=== PATIENT | female | born 1965 | race Caucasian/White ===

== ENCOUNTER → 2016-09-06 | Outpatient (REF) | payer OTHER ==
[~2016-09-06] MED LIST: AZEL0.1S3; BENT10CA PO; BUPR50TA PO; CLAR10CA3 PO; DOCQ100C PO; FURO20TA2 PO; GEMF600T PO; HYDR25TAB PO; LISI-538 PO; PANT40TA2 PO; TIOT18INH INH; TRAZ100T4 PO; VITA100037 PO
[2016-09-06 12:17] LABS: BASO # 0.1 K/mm3 (0.0-0.2); BASO % 1.3 % (0.0-1.0); EOS # 0.2 K/mm3 (0.0-0.50); EOS % 2.9 % (0.0-3.0); LARGE UNSTAINED CELL # 0.1 K/mm3 (0.0-0.4); LARGE UNSTAINED CELL % 1.5 % (0.0-4.0); LYMPH % 22.8 % (24.0-44.0); MEAN CORPUSCULAR HEMOGLOBIN 29.6 pg (27.0-33.0); MEAN CORPUSCULAR HGB CONC 34.3 g/dl (32.0-36.5); MEAN CORPUSCULAR VOLUME 86.3 fl (80.0-96.0); MONO # 0.4 K/mm3 (0.0-0.8); MONO % 4.3 % (0.0-5.0); NEUTROPHILS # 5.6 K/mm3 (1.8-7.7); NEUTROPHILS % 67.3 % (36.0-66.0); PLATELET COUNT, AUTOMATED 254 k/mm3 (150-450); RED CELL DISTRIBUTION WIDTH 14.6 % (11.5-14.5); WHITE BLOOD COUNT 8.3 K/mm3 (4.0-10.0)
[2016-09-06 12:37] LABS: ALBUMIN 3.8 GM/DL (3.2-5.2); ALBUMIN/GLOBULIN RATIO 1.09 (1.00-1.93); ALKALINE PHOSPHATASE 112 U/L (45-117); ALT/SGPT 22 U/L (12-78); ANION GAP 11 MEQ/L (8-16); AST/SGOT 10 U/L (15-37); BILIRUBIN,TOTAL 0.3 MG/DL (0.2-1.0); BLOOD UREA NITROGEN 19 MG/DL (7-18); CALCIUM LEVEL 9.8 MG/DL (8.5-10.1); CARBON DIOXIDE LEVEL 26 MEQ/L (21-32); CHLORIDE LEVEL 103 MEQ/L (98-107); CREATININE FOR GFR 0.84 MG/DL (0.55-1.02); GLOMERULAR FILTRATION RATE > 60.0 (>58); GLUCOSE, FASTING 197 MG/DL (70-105); POTASSIUM SERUM 4.6 MEQ/L (3.5-5.1); SODIUM LEVEL 140 MEQ/L (136-145); TOTAL PROTEIN 7.3 GM/DL (6.4-8.2)
== END ==
LOC: M SFHCPLAZ 08:33
PROVIDERS: ATTEND Physician Assistant Medical
DX: I10 Essential (primary) hypertension (principal); E11.69 Type 2 diabetes mellitus with other specified complication

== ENCOUNTER 2016-09-10 16:41 | Emergency (ER) | payer OTHER ==
[2016-09-10] MEDS ORDERED: NORCO, ANEXSIA 5/325MG TABLET (HYDROcodone/ACETAMINOPHEN) As Ordered ONE (17:27)
--- NOTE | 2016-09-10 18:42 | EDDOCDS ---
Nurse's Notes [facility] Name: Sabiha Beaver Age: 51 yrs Sex: Female : 1965 Arrival Date: 09/10/2016 Time: 16:41 Bed TR8 Private MD: Zuri Naranjo R. Diagnosis: Fall on same level due to ice and snow;Low back pain Presentation: 09/10 16:45 Presenting complaint: Patient states: back pain since slipping on ice 1 day ago. Small kr3 area of burn left forearm from cookie tray 1 day ago. Acute neurological deficits are not present. Mechanism of Injury: Fall from standing position. Adult Sepsis Screening: The patient does not have new or worsening altered mentation. Patient's respiratory rate is less than 22. Systolic blood pressure is greater than 100. Patient has a qSOFA score of 0- Negative Sepsis Screen. Suicide/Homicide risk assessment- the patient denies having any suicidal and/or homicidal ideations and does not present with any other emotional, behavioral or mental health complaints. Status: Patient is not a customer service supervisor or dependent. Transition of care: patient was not received from another setting of care. 16:45 Acuity: ALLIE Level 4 kr3 16:45 Method Of Arrival: Walkin/Carried/Asstd kr3 Triage Assessment: 16:48 General: Appears in no apparent distress, comfortable, Behavior is cooperative. Pain: kr3 Location: low back area Pain currently is 10 out of 10 on a pain scale. HIV screening NA for this visit Offered previously. Respiratory: Respiratory effort is even, unlabored. Musculoskeletal: Range of motion intact in all extremities. Injury Description: Burn sustained to dorsal aspect of left forearm is a first-degree burn. was sustained 1 day ago. 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 gemfibrozil 600 mg Oral tab 1 tab 2 times per day 2. hydrochlorothiazide 25 mg Oral tab 1 tab once daily 3. lisinopril 20 mg Oral tab 1 tab once daily 4. metformin 500 mg Oral tab 2 tabs 2 times per day 5. novolog 70/30 24 units twice a day 6. gabapentin 100 mg Oral cap 3 times per day - PMHx: Anxiety; Depression; Diabetes - NIDDM: controlled; Hypercholesterolemia; Hypertension; insomnia; fluid retention; Chronic Back pain; - PSHx: Cesearean Section; Tubal ligation; Cholecystectomy; Hysterectomy; - Social history: Smoking status: Patient uses tobacco products, current every day smoker. No barriers to communication noted, The patient speaks fluent [place] Citizen, Speaks appropriately for age. - : The pt / caregiver states he / she is not on anticoagulants. Home medication list is obtained from the patient. - Exposure Risk Screening:: None identified. Vital Signs: 16:43 BP 155 / 77; Pulse 120; Resp 20; Temp 98.9; Pulse Ox 97% ; Weight 140.16 kg; Height 5 elp ft. 8 in. (172.72 cm); Pain 10/10; 18:38 jam1 16:43 Body Mass Index 46.98 (140.16 kg, 172.72 cm) elp 18:38 CALLED PT TO ROOM FOUR TIMES WENT TO WAITING ROOM LOOKED OUT SIDE SHE WAS NOT THERE [facility] Vitals: 16:43 Log In Time: September 10, 2016 at 16:41. elp ED Course: 16:42 Patient visited by Lucila Ruiz PCA. elp 16:42 Patient moved to Waiting elp 16:43 Zuri Naranjo is Private Physician. elp 16:43 Patient moved to Pre RCE elp 16:46 Triage Initiated kr3 16:52 Patient moved to Triage 2 ml6 17:16 [facility]icks[facility] ar2 17:16 Anastasia Levy MD is Attending Physician. ar2 17:16 Patient visited by Braydon Dickson PA-C. ar2 17:35 Patient moved to TR8 [facility] 17:39 [facility] Payment Agreement was scanned into [employer] and attached to record. gjb 18:02 Patient moved to TR1 ml6 18:22 Patient moved to PR2 / 26 jam1 18:26 Patient moved to TR8 [facility] 18:37 Zuri Naranjo is Referral Physician. ar2 Administered Medications: 17:35 Drug: HYDROcodone-acetaminophen 1 tabs [hydrocodone 5 mg-acetaminophen 325 mg tablet (1 ml6 tabs)] Route: PO; Order Results: There are currently no results for this order. Outcome: 18:38 Patient left against medical advice. ar2 18:40 The patient is leaving AMA: AMA form signed, Notification of AMA status is made to the 6 charge nurse, the older adult social work specialist, the ED attending physician. 18:40 Patient left the ED. 6 Signatures: Radha Smith, APPLIANCE PARTS COUNTER CLERK APPLIANCE PARTS COUNTER CLERK jam1 Renetta Anaya,RN RN kr3 Braydon Dickson, Abdifatah Shahid PA-C, RN RN ml6 Lucila Ruiz, APPLIANCE PARTS COUNTER CLERK APPLIANCE PARTS COUNTER CLERK Odilia Henson MTDD
--- NOTE | 2016-09-10 18:42 | EDDOCDS ---
Physician Documentation [facility] Name: Sabiha Beaver Age: 51 yrs Sex: Female : 1965 Arrival Date: 09/10/2016 Time: 16:41 Bed TR8 Private MD: Zuri Naranjo R. Disposition: 09/10/16 18:38 Patient has left against medical advice. Impression: Fall on same level due to ice and snow, Low back pain. - Patients states they are going to Home/Self Care. - Condition is Unchanged. - Discharge Instructions: AMA. Medication Reconciliation, Local Pharmacy Hours form. Follow up: Zuri Naranjo; When: Call to arrange an appointment; Reason: Recheck today's complaints, Continuance of care. Follow up: Emergency Department; When: As needed; Reason: Worsening of conditions. - Problem is new. - Symptoms are unchanged. Historical: - Allergies: PENICILLINS (Hives); - Home Meds: 1. gemfibrozil 600 mg Oral tab 1 tab 2 times per day 2. hydrochlorothiazide 25 mg Oral tab 1 tab once daily 3. lisinopril 20 mg Oral tab 1 tab once daily 4. metformin 500 mg Oral tab 2 tabs 2 times per day 5. novolog 70/30 24 units twice a day 6. gabapentin 100 mg Oral cap 3 times per day - PMHx: Anxiety; Depression; Diabetes - NIDDM: controlled; Hypercholesterolemia; Hypertension; insomnia; fluid retention; Chronic Back pain; - PSHx: Cesearean Section; Tubal ligation; Cholecystectomy; Hysterectomy; - Social history: Smoking status: Patient uses tobacco products, current every day smoker. No barriers to communication noted, The patient speaks fluent Latvian, Speaks appropriately for age. - : The pt / caregiver states he / she is not on anticoagulants. Home medication list is obtained from the patient. - Exposure Risk Screening:: None identified. 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 8 in. (172.72 cm); Pain 10/10; 18:38 jam1 16:43 Body Mass Index 46.98 (140.16 kg, 172.72 cm) elp 18:38 CALLED PT TO ROOM FOUR TIMES WENT TO WAITING ROOM LOOKED OUT SIDE SHE WAS NOT THERE jam1 MDM: 17:24 HYDROcodone-acetaminophen 5 mg-325 mg 1 tabs PO once ordered. ar2 17:25 Spine. Lumbosacral, Complete Ordered. EDMS 17:39 [facility] Payment Agreement was scanned into [employer] and attached to record. gjb 17:39 Financial registration complete. gjb Administered Medications: 17:35 Drug: HYDROcodone-acetaminophen 1 tabs [hydrocodone 5 mg-acetaminophen 325 mg tablet (1 ml6 tabs)] Route: PO; Signatures: Dispatcher [employer] EDMS Renetta AnayaRN RN kr3 Braydon Dickson PA-C PARichelle ar2 Abdifatah Borden RN RN ml6 Odilia Carranza The chart was reviewed and I authenticate all verbal orders and agree with the evaluation and treatment provided.Attachments: 17:39 [facility] Payment Agreement gjb MTDD
--- NOTE | 2016-09-10 18:54 | EDDOCDS ---
Nurse's Notes [facility] Name: Sabiha Beaver Age: 51 yrs Sex: Female : 1965 Arrival Date: 09/10/2016 Time: 16:41 Bed PR Private MD: Zuri Naranjo R. Diagnosis: Fall on same level due to ice and snow;Low back pain Presentation: 09/10 16:45 Presenting complaint: Patient states: back pain since slipping on ice 1 day ago. Small kr3 area of burn left forearm from cookie tray 1 day ago. Acute neurological deficits are not present. Mechanism of Injury: Fall from standing position. Adult Sepsis Screening: The patient does not have new or worsening altered mentation. Patient's respiratory rate is less than 22. Systolic blood pressure is greater than 100. Patient has a qSOFA score of 0- Negative Sepsis Screen. Suicide/Homicide risk assessment- the patient denies having any suicidal and/or homicidal ideations and does not present with any other emotional, behavioral or mental health complaints. Status: Patient is not a adoption services manager or dependent. Transition of care: patient was not received from another setting of care. 16:45 Acuity: ALLIE Level 4 kr3 16:45 Method Of Arrival: Walkin/Carried/Asstd kr3 Triage Assessment: 16:48 General: Appears in no apparent distress, comfortable, Behavior is cooperative. Pain: kr3 Location: low back area Pain currently is 10 out of 10 on a pain scale. HIV screening NA for this visit Offered previously. Respiratory: Respiratory effort is even, unlabored. Musculoskeletal: Range of motion intact in all extremities. Injury Description: Burn sustained to dorsal aspect of left forearm is a first-degree burn. was sustained 1 day ago. 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 gemfibrozil 600 mg Oral tab 1 tab 2 times per day 2. hydrochlorothiazide 25 mg Oral tab 1 tab once daily 3. lisinopril 20 mg Oral tab 1 tab once daily 4. metformin 500 mg Oral tab 2 tabs 2 times per day 5. novolog 70/30 24 units twice a day 6. gabapentin 100 mg Oral cap 3 times per day - PMHx: Anxiety; Depression; Diabetes - NIDDM: controlled; Hypercholesterolemia; Hypertension; insomnia; fluid retention; Chronic Back pain; - PSHx: Cesearean Section; Tubal ligation; Cholecystectomy; Hysterectomy; - Social history: Smoking status: Patient uses tobacco products, current every day smoker. No barriers to communication noted, The patient speaks fluent Surinamese, Speaks appropriately for age. - Family history: Not pertinent. - : The pt / caregiver states he / she is not on anticoagulants. Home medication list is obtained from the patient. - Exposure Risk Screening:: None identified. Screenin:50 Screening information is obtained from the patient. Fall risk: No risks identified. js13 Assistance ADL's: requires no assistance with activities of daily living. Abuse/DV Screen: The patient / caregiver reports he/she is: not in a situation that causes fear, pain or injury. Nutritional screening: No deficits noted. Advance Directives: There is no active DNR order. home support is adequate. Assessment: 18:50 General: Appears in no apparent distress, comfortable, Behavior is appropriate for age, js13 cooperative. Pain: Pain currently is 3 out of 10 on a pain scale. Neurological: Level of Consciousness is awake, alert. Respiratory: Airway is patent Respiratory effort is even, unlabored, Respiratory pattern is regular, symmetrical. Derm: Skin is pink, warm & dry. Vital Signs: 16:43 BP 155 / 77; Pulse 120; Resp 20; Temp 98.9; Pulse Ox 97% ; Weight 140.16 kg; Height 5 elp ft. 8 in. (172.72 cm); Pain 10/10; 18:38 jam1 18:53 Pain 2/10; js13 16:43 Body Mass Index 46.98 (140.16 kg, 172.72 cm) elp 18:38 CALLED PT TO ROOM FOUR TIMES WENT TO WAITING ROOM LOOKED OUT SIDE SHE WAS NOT THERE jam1 Vitals: 16:43 Log In Time: September 10, 2016 at 16:41. elp ED Course: 16:42 Patient visited by Lucila Ruiz PCA. elp 16:42 Patient moved to Waiting elp 16:43 Zuri Naranjo is Private Physician. elp 16:43 Patient moved to Pre RCE elp 16:46 Triage Initiated kr3 16:52 Patient moved to Triage 2 ml6 17:16 [facility]icks[facility]. ar2 17:16 Anastasia Levy MD is Attending Physician. ar2 17:16 Patient visited by Braydon Dickson PA-C. ar2 17:35 Patient moved to TR8 jam1 17:39 [facility] Payment Agreement was scanned into [employer] and attached to record. gjb 18:02 Patient moved to TR1 ml6 18:22 Patient moved to PR2 / 26 jam1 18:26 Patient moved to TR8 jam1 18:37 Zuri Naranjo is Referral Physician. ar2 18:45 Patient moved to PR1 / 25 jam1 18:46 Zuri Naranjo is Referral Physician. ar2 18:50 The patient / caregiver is instructed regarding the plan of care and ED course. js13 18:52 No IV's were initiated during this patient's visit. No procedures done that require js13 assistance. Administered Medications: 17:35 Drug: HYDROcodone-acetaminophen 1 tabs [hydrocodone 5 mg-acetaminophen 325 mg tablet (1 ml6 tabs)] Route: PO; 18:53 Follow up: Pain 10/13 Adult js13 18:53 Follow up: Response: Pain is decreased js13 Order Results: There are currently no results for this order. Outcome: 18:38 Patient left against medical advice. ar2 18:40 The patient is leaving AMA: AMA form signed, Notification of AMA status is made to the [facility] charge nurse, the social media senior associate, the ED attending physician. 18:40 Patient left the ED. ml6 18:46 Discharge ordered by Provider. ar2 18:53 Discharge Assessment: Patient awake, alert and oriented x 3. No cognitive and/or js13 functional deficits noted. Patient verbalized understanding of disposition instructions. patient administered narcotics - yes. Pt provided with safe discharge. The following High Risk Discharge criteria are identified: None. Discharged to home ambulatory, with friend. Condition: stable. Discharge instructions given to patient, Instructed on discharge instructions, follow up and referral plans. medication usage, Demonstrated understanding of instructions, medications, Pt was receptive of discharge instructions/ teaching. Prescriptions given X 2. No special radiology studies were completed. Property :Personal belongings accompany Pt. 18:54 Patient left the ED. js13 Signatures: Radha Smith, BARNWORKER GROOM BARNWORKER GROOM jam1 Renetta Anaya,ARSH RN kr3 Braydon Dickson PA-C PA-C ar2 Abdifatah Borden, RN RN ml6 Darlene Sellers,RN RN js13 Lucila Ruiz, Odilia Kwong MTDD
--- NOTE | 2016-09-10 18:54 | EDDOCDS ---
Physician Documentation [facility] Name: Sabiha Beaver Age: 51 yrs Sex: Female : 1965 Arrival Date: 09/10/2016 Time: 16:41 Bed PR Private MD: Zuri Naranjo R. Disposition: 09/10/16 18:46 Discharged to Home/Self Care. Impression: Fall on same level due to ice and snow, Low back pain. - Condition is Stable. - Discharge Instructions: Back Pain, Adult. - Prescriptions for Naprosyn 500 mg Oral Tablet - take 1 tablet by ORAL route 2 times per day take with food; 30 tablet. Cyclobenzaprine 10 mg Oral Tablet - take 1 tablet by ORAL route 3 times per day As needed; 15 tablet. - Medication Reconciliation, Local Pharmacy Hours form. - Follow up: Zuri Naranjo; When: Call to arrange an appointment; Reason: Recheck today's complaints, Continuance of care. - Problem is new. - Symptoms have improved. Historical: - Allergies: PENICILLINS (Hives); - Home Meds: 1. gemfibrozil 600 mg Oral tab 1 tab 2 times per day 2. hydrochlorothiazide 25 mg Oral tab 1 tab once daily 3. lisinopril 20 mg Oral tab 1 tab once daily 4. metformin 500 mg Oral tab 2 tabs 2 times per day 5. novolog 70/30 24 units twice a day 6. gabapentin 100 mg Oral cap 3 times per day - PMHx: Anxiety; Depression; Diabetes - NIDDM: controlled; Hypercholesterolemia; Hypertension; insomnia; fluid retention; Chronic Back pain; - PSHx: Cesearean Section; Tubal ligation; Cholecystectomy; Hysterectomy; - Social history: Smoking status: Patient uses tobacco products, current every day smoker. No barriers to communication noted, The patient speaks fluent Uzbek, Speaks appropriately for age. - Family history: Not pertinent. - : The pt / caregiver states he / she is not on anticoagulants. Home medication list is obtained from the patient. - Exposure Risk Screening:: None identified. 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 8 in. (172.72 cm); Pain 10/10; 18:38 jam1 18:53 Pain 2/10; js13 16:43 Body Mass Index 46.98 (140.16 kg, 172.72 cm) elp 18:38 CALLED PT TO ROOM FOUR TIMES WENT TO WAITING ROOM LOOKED OUT SIDE SHE WAS NOT THERE jam1 MDM: 17:24 HYDROcodone-acetaminophen 5 mg-325 mg 1 tabs PO once ordered. ar2 17:25 Spine. Lumbosacral, Complete Ordered. EDMS 17:39 [facility] Payment Agreement was scanned into [employer] and attached to record. gjb 17:39 Financial registration complete. gjb Administered Medications: 17:35 Drug: HYDROcodone-acetaminophen 1 tabs [hydrocodone 5 mg-acetaminophen 325 mg tablet (1 ml6 tabs)] Route: PO; 18:53 Follow up: Pain 2/10 Adult js13 18:53 Follow up: Response: Pain is decreased js13 Signatures: Dispatcher [employer] EDVT Renetta Anaya,RN RN kr3 Braydon Dickson, PA-C PA-C ar2 Abdifatah Borden RN RN ml6 Darlene SellersRN RN js13 Odilia Carranza The chart was reviewed and I authenticate all verbal orders and agree with the evaluation and treatment provided.Attachments: 17:39 [facility] Payment Agreement gjb MTDD
--- NOTE | 2016-09-11 05:41 | REP ---
LUMBAR SPINE SERIES: FIVE VIEWS. History: Injury in a fall. Question compression fracture. Comparison study November 01, 2014. Findings: There is a mild levoconvex curve in the lumbar spine on the AP radiograph unchanged from the prior study. There are clips in right upper quadrant of the abdomen. Discogenic spurring is noted on the left at L1-2 and L2-3. Lumbar vertebral body heights are preserved. Degenerative disc disease is seen at each lumbar level. This is essentially unchanged from the 2015 prior study. No fracture or collapse is seen. Pedicles and posterior elements are intact. Impression: Degenerative disc changes. No fracture seen. Signed by Jose Juan Yoo MD 09/11/2016 08:32 A
--- NOTE | 2016-09-12 19:55 | EDDOCDS ---
Nurse's Notes [facility] Name: Sabiha Beaver Age: 51 yrs Sex: Female : 1965 Arrival Date: 09/10/2016 Time: 16:41 Bed PR Private MD: Zuri Naranjo R. Diagnosis: Fall on same level due to ice and snow;Low back pain Presentation: 09/10 16:45 Presenting complaint: Patient states: back pain since slipping on ice 1 day ago. Small kr3 area of burn left forearm from cookie tray 1 day ago. Acute neurological deficits are not present. Mechanism of Injury: Fall from standing position. Adult Sepsis Screening: The patient does not have new or worsening altered mentation. Patient's respiratory rate is less than 22. Systolic blood pressure is greater than 100. Patient has a qSOFA score of 0- Negative Sepsis Screen. Suicide/Homicide risk assessment- the patient denies having any suicidal and/or homicidal ideations and does not present with any other emotional, behavioral or mental health complaints. Status: Patient is not a technical services analyst or dependent. Transition of care: patient was not received from another setting of care. 16:45 Acuity: ALLIE Level 4 kr3 16:45 Method Of Arrival: Walkin/Carried/Asstd kr3 Triage Assessment: 16:48 General: Appears in no apparent distress, comfortable, Behavior is cooperative. Pain: kr3 Location: low back area Pain currently is 10 out of 10 on a pain scale. HIV screening NA for this visit Offered previously. Respiratory: Respiratory effort is even, unlabored. Musculoskeletal: Range of motion intact in all extremities. Injury Description: Burn sustained to dorsal aspect of left forearm is a first-degree burn. was sustained 1 day ago. 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 gemfibrozil 600 mg Oral tab 1 tab 2 times per day 2. hydrochlorothiazide 25 mg Oral tab 1 tab once daily 3. lisinopril 20 mg Oral tab 1 tab once daily 4. metformin 500 mg Oral tab 2 tabs 2 times per day 5. novolog 70/30 24 units twice a day 6. gabapentin 100 mg Oral cap 3 times per day - PMHx: Anxiety; Depression; Diabetes - NIDDM: controlled; Hypercholesterolemia; Hypertension; insomnia; fluid retention; Chronic Back pain; - PSHx: Cesearean Section; Tubal ligation; Cholecystectomy; Hysterectomy; - Social history: Smoking status: Patient uses tobacco products, current every day smoker. No barriers to communication noted, The patient speaks fluent [place], Speaks appropriately for age. - Family history: Not pertinent. - : The pt / caregiver states he / she is not on anticoagulants. Home medication list is obtained from the patient. - Exposure Risk Screening:: None identified. Screenin:50 Screening information is obtained from the patient. Fall risk: No risks identified. js13 Assistance ADL's: requires no assistance with activities of daily living. Abuse/DV Screen: The patient / caregiver reports he/she is: not in a situation that causes fear, pain or injury. Nutritional screening: No deficits noted. Advance Directives: There is no active DNR order. home support is adequate. Assessment: 18:50 General: Appears in no apparent distress, comfortable, Behavior is appropriate for age, js13 cooperative. Pain: Pain currently is 3 out of 10 on a pain scale. Neurological: Level of Consciousness is awake, alert. Respiratory: Airway is patent Respiratory effort is even, unlabored, Respiratory pattern is regular, symmetrical. Derm: Skin is pink, warm & dry. Vital Signs: 16:43 BP 155 / 77; Pulse 120; Resp 20; Temp 98.9; Pulse Ox 97% ; Weight 140.16 kg; Height 5 elp ft. 8 in. (172.72 cm); Pain 10/10; 18:38 jam1 18:50 BP 149 / 68; Pulse 97; Resp 20; Temp 99.0; Pulse Ox 98% ; Pain 10/10; jam1 18:53 Pain 2/10; js13 16:43 Body Mass Index 46.98 (140.16 kg, 172.72 cm) elp 18:38 CALLED PT TO ROOM FOUR TIMES WENT TO WAITING ROOM LOOKED OUT SIDE SHE WAS NOT THERE jam1 Vitals: 16:43 Log In Time: September 10, 2016 at 16:41. elp ED Course: 16:42 Patient visited by Lucila Ruiz PCA. elp 16:42 Patient moved to Waiting elp 16:43 Zuri Naranjo is Private Physician. elp 16:43 Patient moved to Pre RCE elp 16:46 Triage Initiated kr3 16:52 Patient moved to Triage 2 ml6 17:16 Braydon Dickson PA-C is PHCP. ar2 17:16 Anastasia Levy MD is Attending Physician. ar2 17:16 Patient visited by Braydon Dickson PA-C. ar2 17:35 Patient moved to TR8 jam1 17:39 [facility] [place] Agreement was scanned into [employer] and attached to record. gjb 18:02 Patient moved to TR1 ml6 18:22 Patient moved to PR2 / 26 jam1 18:26 Patient moved to TR8 jam1 18:37 Zuri Naranjo is Referral Physician. ar2 18:45 Patient moved to PR1 / 25 jam1 18:46 Zuri Naranjo is Referral Physician. ar2 18:50 The patient / caregiver is instructed regarding the plan of care and ED course. js13 18:52 No IV's were initiated during this patient's visit. No procedures done that require js13 assistance. 21:20 T-Sheet-- Draft Copy was scanned into [employer] and attached to record. klr 09/11 05:48 Spine. Lumbosacral, Complete Returned. EDMS 10:52 Radiology Report was scanned into [employer] and attached to record. gb Administered Medications: 09/10 17:35 Drug: HYDROcodone-acetaminophen 1 tabs [hydrocodone 5 mg-acetaminophen 325 mg tablet (1 ml6 tabs)] Route: PO; 18:53 Follow up: Pain 2 Adult js13 18:53 Follow up: Response: Pain is decreased js13 Order Results: Radiology Order: Spine. Lumbosacral, Complete Test: Spine. Lumbosacral, Complete REASON FOR EXAMINATION: fall r/o compression fx; LUMBAR SPINE SERIES: FIVE VIEWS.; ; History: Injury in a fall. Question compression fracture.; ; Comparison study November 01, 2014.; ; Findings: There is a mild levoconvex curve in the lumbar spine on the AP; radiograph unchanged from the prior study. There are clips in right upper; quadrant of the abdomen. Discogenic spurring is noted on the left at L1-2 and; L2-3. Lumbar vertebral body heights are preserved. Degenerative disc disease is; seen at each lumbar level. This is essentially unchanged from the 2014 prior; study. No fracture or collapse is seen. Pedicles and posterior elements are; intact.; ; Impression:; ; Degenerative disc changes. No fracture seen.; ; ; Signed by; Jose Juan Yoo MD 09/11/2016 08:32 A; Outcome: 18:38 Patient left against medical advice. ar2 18:40 The patient is leaving AMA: AMA form signed, Notification of AMA status is made to the 6 charge nurse, the social work therapist, the ED attending physician. 18:40 Patient left the ED. ml6 18:46 Discharge ordered by Provider. ar2 18:53 Discharge Assessment: Patient awake, alert and oriented x 3. No cognitive and/or js13 functional deficits noted. Patient verbalized understanding of disposition instructions. patient administered narcotics - yes. Pt provided with safe discharge. The following High Risk Discharge criteria are identified: None. Discharged to home ambulatory, with friend. Condition: stable. Discharge instructions given to patient, Instructed on discharge instructions, follow up and referral plans. medication usage, Demonstrated understanding of instructions, medications, Pt was receptive of discharge instructions/ teaching. Prescriptions given X 2. No special radiology studies were completed. Property :Personal belongings accompany Pt. 18:54 Patient left the ED. js13 Signatures: Dispatcher [employer] EDMS Radha Smith, FIELD SERVICE TECH FIELD SERVICE TECH jam1 Oxana Lagunas, Renetta Bray,RN RN kr3 Braydon Dickson, PA-C PA-C ar2 Abdifatah Borden, ARSH RN ml6 Darlene Sellers RN RN js13 Lucila Ruiz, FIELD SERVICE TECH FIELD SERVICE TECH Odilia Henson Kathie klr Chart Complete MTDD
--- NOTE | 2016-09-12 19:55 | EDDOCDS ---
Physician Documentation [facility] Name: Sabiha Beaver Age: 51 yrs Sex: Female : 1965 Arrival Date: 09/10/2016 Time: 16:41 Bed PR Private MD: Zuri Naranjo R. Disposition: 09/10/16 18:46 Discharged to Home/Self Care. Impression: Fall on same level due to ice and snow, Low back pain. - Condition is Stable. - Discharge Instructions: Back Pain, Adult. - Prescriptions for Naprosyn 500 mg Oral Tablet - take 1 tablet by ORAL route 2 times per day take with food; 30 tablet. Cyclobenzaprine 10 mg Oral Tablet - take 1 tablet by ORAL route 3 times per day As needed; 15 tablet. - Medication Reconciliation, Local Pharmacy Hours form. - Follow up: Zuri Naranjo; When: Call to arrange an appointment; Reason: Recheck today's complaints, Continuance of care. - Problem is new. - Symptoms have improved. Historical: - Allergies: PENICILLINS (Hives); - Home Meds: 1. gemfibrozil 600 mg Oral tab 1 tab 2 times per day 2. hydrochlorothiazide 25 mg Oral tab 1 tab once daily 3. lisinopril 20 mg Oral tab 1 tab once daily 4. metformin 500 mg Oral tab 2 tabs 2 times per day 5. novolog 70/30 24 units twice a day 6. gabapentin 100 mg Oral cap 3 times per day - PMHx: Anxiety; Depression; Diabetes - NIDDM: controlled; Hypercholesterolemia; Hypertension; insomnia; fluid retention; Chronic Back pain; - PSHx: Cesearean Section; Tubal ligation; Cholecystectomy; Hysterectomy; - Social history: Smoking status: Patient uses tobacco products, current every day smoker. No barriers to communication noted, The patient speaks fluent Marshallese, Speaks appropriately for age. - Family history: Not pertinent. - : The pt / caregiver states he / she is not on anticoagulants. Home medication list is obtained from the patient. - Exposure Risk Screening:: None identified. 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 8 in. (172.72 cm); Pain 10/10; 18:38 jam1 18:50 BP 149 / 68; Pulse 97; Resp 20; Temp 99.0; Pulse Ox 98% ; Pain 10/10; jam1 18:53 Pain 2/10; js13 16:43 Body Mass Index 46.98 (140.16 kg, 172.72 cm) elp 18:38 CALLED PT TO ROOM FOUR TIMES WENT TO WAITING ROOM LOOKED OUT SIDE SHE WAS NOT THERE jam1 MDM: 17:24 HYDROcodone-acetaminophen 5 mg-325 mg 1 tabs PO once ordered. ar2 17:25 Spine. Lumbosacral, Complete Ordered. EDMS 17:39 [facility] [place] Payment Agreement was scanned into [employer] and attached to record. gjb 17:39 Financial registration complete. gjb 21:20 T-Sheet-- Draft Copy was scanned into [employer] and attached to record. klr 09/11 10:52 Radiology Report was scanned into [employer] and attached to record. gb Administered Medications: 09/10 17:35 Drug: HYDROcodone-acetaminophen 1 tabs [hydrocodone 5 mg-acetaminophen 325 mg tablet (1 ml6 tabs)] Route: PO; 18:53 Follow up: Pain 2/10 Adult js13 18:53 Follow up: Response: Pain is decreased js13 Signatures: Dispatcher [employer] EDMS Oxana Lagunas, Jonah Reg gb Renetta Anaya,RN RN kr3 Braydon Dickson PARichelle PARichelle ar2 Abdifatah Borden RN RN ml6 Darlene Sellers RN RN js13 Odilia Carranza b Sindhu Lucas The chart was reviewed and I authenticate all verbal orders and agree with the evaluation and treatment provided.Attachments: 17:39 [facility] [place] Payment Agreement b 21:20 T-Sheet-- Draft Copy klr Chart Complete MTDD
--- NOTE | 2016-09-12 19:55 | EDDOCDS ---
Physician Documentation [facility] Name: Sabiha Beaver Age: 51 yrs Sex: Female : 1965 Arrival Date: 09/10/2016 Time: 16:41 Bed PR Private MD: Zuri Naranjo R. Disposition: 09/10/16 18:46 Discharged to Home/Self Care. Impression: Fall on same level due to ice and snow, Low back pain. - Condition is Stable. - Discharge Instructions: Back Pain, Adult. - Prescriptions for Naprosyn 500 mg Oral Tablet - take 1 tablet by ORAL route 2 times per day take with food; 30 tablet. Cyclobenzaprine 10 mg Oral Tablet - take 1 tablet by ORAL route 3 times per day As needed; 15 tablet. - Medication Reconciliation, Local Pharmacy Hours form. - Follow up: Zuri Naranjo; When: Call to arrange an appointment; Reason: Recheck today's complaints, Continuance of care. - Problem is new. - Symptoms have improved. Historical: - Allergies: PENICILLINS (Hives); - Home Meds: 1. gemfibrozil 600 mg Oral tab 1 tab 2 times per day 2. hydrochlorothiazide 25 mg Oral tab 1 tab once daily 3. lisinopril 20 mg Oral tab 1 tab once daily 4. metformin 500 mg Oral tab 2 tabs 2 times per day 5. novolog 70/30 24 units twice a day 6. gabapentin 100 mg Oral cap 3 times per day - PMHx: Anxiety; Depression; Diabetes - NIDDM: controlled; Hypercholesterolemia; Hypertension; insomnia; fluid retention; Chronic Back pain; - PSHx: Cesearean Section; Tubal ligation; Cholecystectomy; Hysterectomy; - Social history: Smoking status: Patient uses tobacco products, current every day smoker. No barriers to communication noted, The patient speaks fluent Citizen Of [place], Speaks appropriately for age. - Family history: Not pertinent. - : The pt / caregiver states he / she is not on anticoagulants. Home medication list is obtained from the patient. - Exposure Risk Screening:: None identified. 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 8 in. (172.72 cm); Pain 10/10; 18:38 jam1 18:50 BP 149 / 68; Pulse 97; Resp 20; Temp 99.0; Pulse Ox 98% ; Pain 10/10; jam1 18:53 Pain 2/10; js13 16:43 Body Mass Index 46.98 (140.16 kg, 172.72 cm) elp 18:38 CALLED PT TO ROOM FOUR TIMES WENT TO WAITING ROOM LOOKED OUT SIDE SHE WAS NOT THERE jam1 MDM: 17:24 HYDROcodone-acetaminophen 5 mg-325 mg 1 tabs PO once ordered. ar2 17:25 Spine. Lumbosacral, Complete Ordered. EDMS 17:39 [facility] [place] Agreement was scanned into [employer] and attached to record. gjb 17:39 Financial registration complete. gjb 21:20 T-Sheet-- Draft Copy was scanned into [employer] and attached to record. klr 09/11 10:52 Radiology Report was scanned into [employer] and attached to record. gb Administered Medications: 09/10 17:35 Drug: HYDROcodone-acetaminophen 1 tabs [hydrocodone 5 mg-acetaminophen 325 mg tablet (1 ml6 tabs)] Route: PO; 18:53 Follow up: Pain 2/10 Adult js13 18:53 Follow up: Response: Pain is decreased js13 Signatures: Dispatcher [employer] EDMS Oxana Lagunas, Jonah Reg gb Renetta Anaya,RN RN kr3 Braydon Dickson PARichelle PARichelle ar2 Abdifatah Borden RN RN ml6 Darlene Sellers RN RN js13 Odilia Carranza b Sindhu Lucas The chart was reviewed and I authenticate all verbal orders and agree with the evaluation and treatment provided.Attachments: 17:39 [facility] [place] Agreement b 21:20 T-Sheet-- Draft Copy klr Chart Complete MTDD
== END 2016-09-10 18:54 | disposition home or self-care (01) ==
LOC: M ED 16:41
DX: S39.92XA Unspecified injury of lower back, initial encounter (principal); W00.0XXA Fall on same level due to ice and snow, initial encounter; Y92.89 Other specified places as the place of occurrence of the external cause; Y93.01 Activity, walking, marching and hiking; Y99.8 Other external cause status; F41.9 Anxiety disorder, unspecified; F32.9 Major depressive disorder, single episode, unspecified; E11.9 Type 2 diabetes mellitus without complications; E78.00 Pure hypercholesterolemia, unspecified; I10 Essential (primary) hypertension; G47.00 Insomnia, unspecified; R60.9 Edema, unspecified; M54.9 Dorsalgia, unspecified; Z79.4 Long term (current) use of insulin; Z79.899 Other long term (current) drug therapy; Z88.0 Allergy status to penicillin; F17.210 Nicotine dependence, cigarettes, uncomplicated

== ENCOUNTER → 2016-09-11 | Outpatient (CLI) | payer OTHER ==
--- NOTE | 2016-09-15 05:52 | SLEEPHOME ---
DATE OF PROCEDURE: 09/11/2016 ORDERED BY: Dr. Draper. ORDERED BY: Radha Mclain. INTERPRETATION: Diagnostic home sleep testing was performed due to concern for the obstructive sleep apnea syndrome in this patient with a history of excessive somnolence. For testing, a NOX-T3 respiratory monitoring device was utilized. Continuous record was made of pulse, oxygen saturation, chest and abdominal strain, air flow and body position. 9 hours and 59 minutes of data were reviewed. 7 hours and 12 minutes were marked as time in bed. During the interval marked time in bed, there were 43 respiratory events identified of 10 seconds in duration or greater for a respiratory event index of 6. The character of events is difficult to quantify as patient did not wear the strain belts correctly. The patient's baseline pulse rate was 79 beats per minute. Pulse rate ranged 69-104. Baseline oxygen saturation 92%. Lowest oxygen saturation 79%. Testing was performed in both the supine and non-supine positions. IMPRESSION: Abnormal home sleep testing with repetitive respiratory events and oxygen desaturations to 79% and a respiratory event index of 6 is consistent with the obstructive sleep apnea syndrome. RECOMMENDATION: The patient should be referred for formal in laboratory evaluation and pressure titration.
== END ==
LOC: M SLEEP 12:51
PROVIDERS: ATTEND Internal Medicine Pulmonary Disease
DX: R40.0 Somnolence (principal)

== ENCOUNTER → 2016-09-19 | Outpatient (REF) | payer OTHER | LOC: M SFHCPLAZ 07:51 | PROVIDERS: ATTEND Physician Assistant Medical | DX: I10 Essential (primary) hypertension (principal) ==

== ENCOUNTER → 2016-09-20 | Outpatient (REF) | payer OTHER ==
[2016-09-21 14:16] LABS: SJOGREN'S ANTI SS-A <0.2 AI (0.0-0.9); SJOGREN'S ANTI SS-B <0.2 AI (0.0-0.9)
== END ==
LOC: M LABNEURO 12:54
PROVIDERS: ATTEND Psychiatry & Neurology Neurology
DX: G43.909 Migraine, unspecified, not intractable, without status migrainosus (principal); M25.50 Pain in unspecified joint

== ENCOUNTER → 2020-07-05 | Outpatient (REF) | payer OTHER, MEDICAID ==
[~2020-07-05] MED LIST changes: +BUPR-69 PO; -BUPR50TA PO; -DOCQ100C PO; +DOCQ100C5 PO; -GEMF600T PO; +GEMF600T5 PO; +HYDR-2541 PO; -HYDR25TAB PO; -PANT40TA2 PO; +PANT40TA29 PO; +TRAZ-257 PO; -TRAZ100T4 PO; -VITA100037 PO; +VITA100067 PO
[2020-07-05 17:26] LABS: BASO # 0.1 10^3/uL (0.0-0.2); BASO % 0.6 % (0.0-1.0); EOS # 0.2 10^3/uL (0.0-0.5); EOS % 1.8 % (0.0-3.0); HEMATOCRIT 43.4 % (36.0-47.0); HEMOGLOBIN 13.8 g/dl (12.0-15.5); LYMPH # 2.2 10^3/uL (1.5-5.0); LYMPH % 22.7 % (24.0-44.0); MEAN CORPUSCULAR HGB CONC 31.8 g/dl (32.0-36.5); MEAN CORPUSCULAR VOLUME 88.2 fl (80.0-96.0); MONO # 0.6 10^3/uL (0.0-0.8); MONO % 6.4 % (0.0-5.0); NEUTROPHILS # 6.6 10^3/uL (1.5-8.5); NEUTROPHILS % 66.9 % (36.0-66.0); PLATELET COUNT, AUTOMATED 321 10^3/uL (150-450); RED BLOOD COUNT 4.92 10^6/uL (4.00-5.40); WHITE BLOOD COUNT 9.9 10^3/uL (4.0-10.0)
[2020-07-06 10:14] LABS: ALBUMIN 3.9 GM/DL (3.2-5.2); ALT/SGPT 28 U/L (12-78); BILIRUBIN,TOTAL 0.5 MG/DL (0.2-1.0); BLOOD UREA NITROGEN 18 MG/DL (7-18); C REACTIVE PROTEIN QUANTITATIV 1.94 MG/DL (0.00-0.30); CALCIUM LEVEL 9.7 MG/DL (8.5-10.1); CARBON DIOXIDE LEVEL 25 MEQ/L (21-32); CHLORIDE LEVEL 99 MEQ/L (98-107); COMPLEMENT C3 175 MG/DL (90-180); COMPLEMENT C4 29 MG/DL (10-40); CREATININE FOR GFR 1.01 MG/DL (0.55-1.30); GLOMERULAR FILTRATION RATE > 60.0 (>51); GLUCOSE, FASTING 338 MG/DL (70-100); POTASSIUM SERUM 4.5 MEQ/L (3.5-5.1); SODIUM LEVEL 134 MEQ/L (136-145); TOTAL PROTEIN 7.6 GM/DL (6.4-8.2)
[2020-07-06 14:22] LABS: ALBUMIN % 55.2 % (55.8-66.1); ALPHA-2-GLOBULINS % 11.5 % (7.1-11.8); BETA-1-GLOBULINS % 7.7 % (4.7-7.2); BETA-2-GLOBULINS % 6.6 % (3.2-6.5)
[2020-07-06 14:23] LABS: ALPHA-2-GLOBULINS 0.87 GM/DL (0.42-0.99); BETA-1-GLOBULINS 0.49 GM/DL (0.28-0.60); GAMMA GLOBULINS 1.14 GM/DL (0.65-1.58)
[2020-07-07 07:57] LABS: RHEUMATOID FACTOR QUANT < 10.0 IU/ML (<15.0)
[2020-07-08 02:08] LABS: CYCLIC CITRULLINATED PEPTIDE 6 units (0-19); SSA SJOGRENS A <0.2 AI (0.0-0.9); SSB SJOGRENS B <0.2 AI (0.0-0.9)
== END ==
LOC: M SFHCRHEU 13:53
PROVIDERS: ATTEND Internal Medicine
DX: M25.50 Pain in unspecified joint (principal); M35.00 Sjogren syndrome, unspecified

== ENCOUNTER → 2020-07-07 | Outpatient (CLI) | payer OTHER, MEDICAID ==
[2020-07-07 14:25] LABS: APPEARANCE, URINE CLOUDY (CLEAR); BACTERIA, URINE AUTO NEGATIVE (NEGATIVE); BILIRUBIN, URINE AUTO NEGATIVE (NEGATIVE); BLOOD, URINE BLOOD NEGATIVE (NEGATIVE); COLOR, URINE YELLOW (YELLOW); GLUCOSE, URINE (UA) AUTO 3+ mg/dL (NEGATIVE); KETONE, URINE AUTO NEGATIVE (NEGATIVE); LEUKOCYTE ESTERASE, URINE AUTO NEGATIVE (NEGATIVE); MUCUS, URINE SMALL (NEGATIVE); NITRITE, URINE AUTO NEGATIVE (NEGATIVE); PROTEIN, URINE AUTO NEGATIVE (NEGATIVE); RBC, URINE AUTO 2 /HPF (0-3); SPECIFIC GRAVITY URINE AUTO 1.031 (1.002-1.035); SQUAMOUS EPITHELIAL CELL UR AU 2 /HPF (0-6); URIC ACID CRYSTALS SMALL; UROBILINOGEN, URINE AUTO 0.2 mg/dL (0.0-2.0); WBC, URINE AUTO 1 /HPF (0-3)
[2020-07-07 14:55] LABS: CHOLESTEROL RISK RATIO 2.622 (<5); FREE T4 1.4 NG/DL (0.76-1.46); THYROID STIMULATING HORMONE 1.45 uIU/ML (0.358-3.740)
[2020-07-07 16:12] LABS: CREATININE, URINE 59.6 MG/DL; MALB URINE SIEMENS 5.7 MG/L; MAU/CREAT RATIO 9.5 MCG/MG (0.0-30.0)
[2020-07-07 20:06] LABS: HEMOGLOBIN A1c 10.3 %
== END ==
LOC: M PLALAB 10:03
PROVIDERS: ATTEND Nurse Practitioner Family
DX: E11.9 Type 2 diabetes mellitus without complications (principal); E78.5 Hyperlipidemia, unspecified; R39.15 Urgency of urination; K21.9 Gastro-esophageal reflux disease without esophagitis

== ENCOUNTER → 2020-12-15 | Outpatient (REF) | payer OTHER, MEDICAID ==
[~2020-12-15] MED LIST changes: -LISI-538 PO; +LISI20TA33 PO
[2020-12-15 18:51] LABS: BLOOD UREA NITROGEN 12 MG/DL (7-18); CARBON DIOXIDE LEVEL 25 MEQ/L (21-32); CHLORIDE LEVEL 99 MEQ/L (98-107); CREATININE FOR GFR 0.75 MG/DL (0.55-1.30); GLOMERULAR FILTRATION RATE > 60.0 (>51); GLUCOSE, FASTING 365 MG/DL (70-100); POTASSIUM SERUM 4.2 MEQ/L (3.5-5.1); SODIUM LEVEL 132 MEQ/L (136-145)
[2020-12-15 18:52] LABS: ALBUMIN 3.5 GM/DL (3.2-5.2); ALT/SGPT 20 U/L (12-78); BILIRUBIN,TOTAL 0.4 MG/DL (0.2-1.0); CALCIUM LEVEL 9.3 MG/DL (8.5-10.1); CHOLESTEROL LEVEL 196 MG/DL (<200); HDL CHOLESTEROL 41 MG/DL (>40); LDL CHOLESTEROL 88 MG/DL (<100); MAGNESIUM LEVEL 1.9 MG/DL (1.8-2.4); NON-HDL-C 155 MG/DL; TRIGLYCERIDES LEVEL 334 MG/DL (<150)
[2020-12-15 22:57] LABS: CREATININE, URINE 93.1 MG/DL; MALB URINE SIEMENS 15.6 MG/L; MAU/CREAT RATIO 16.7 MCG/MG (0.0-30.0)
== END ==
LOC: M SFHCPLAZ 12:05
PROVIDERS: ATTEND Nurse Practitioner Family
DX: E11.9 Type 2 diabetes mellitus without complications (principal); E78.5 Hyperlipidemia, unspecified; I10 Essential (primary) hypertension

== ENCOUNTER → 2021-01-17 | Outpatient (REF) | payer OTHER, MEDICAID ==
[2021-01-17 15:09] LABS: BLOOD UREA NITROGEN 13 MG/DL (7-18); CALCIUM LEVEL 9.5 MG/DL (8.5-10.1); CARBON DIOXIDE LEVEL 27 MEQ/L (21-32); CHLORIDE LEVEL 104 MEQ/L (98-107); CREATININE FOR GFR 0.71 MG/DL (0.55-1.30); GLOMERULAR FILTRATION RATE > 60.0 (>51); GLUCOSE, FASTING 117 MG/DL (70-100); POTASSIUM SERUM 4.4 MEQ/L (3.5-5.1); SODIUM LEVEL 138 MEQ/L (136-145)
== END ==
LOC: M PLALAB 12:50
PROVIDERS: ATTEND Nurse Practitioner Family
DX: E11.65 Type 2 diabetes mellitus with hyperglycemia (principal)

== ENCOUNTER → 2021-05-20 | Outpatient (CLI) | payer OTHER ==
[2021-05-20 12:59] LABS: BASO # 0.1 10^3/uL (0.0-0.2); BASO % 0.7 % (0.0-1.0); EOS # 0.3 10^3/uL (0.0-0.5); EOS % 2.8 % (0.0-3.0); HEMATOCRIT 43.5 % (36.0-47.0); HEMOGLOBIN 14.3 g/dl (12.0-15.5); LYMPH # 2.6 10^3/uL (1.5-5.0); LYMPH % 24.4 % (24.0-44.0); MEAN CORPUSCULAR HEMOGLOBIN 28.2 pg (27.0-33.0); MEAN CORPUSCULAR HGB CONC 32.9 g/dl (32.0-36.5); MEAN CORPUSCULAR VOLUME 85.8 fl (80.0-96.0); MONO # 0.5 10^3/uL (0.0-0.8); MONO % 5.1 % (2.0-8.0); NEUTROPHILS # 6.9 10^3/uL (1.5-8.5); NEUTROPHILS % 65.6 % (36.0-66.0); PLATELET COUNT, AUTOMATED 275 10^3/uL (150-450); RED BLOOD COUNT 5.07 10^6/uL (4.00-5.40); WHITE BLOOD COUNT 10.6 10^3/uL (4.0-10.0)
[2021-05-20 13:23] LABS: HEMOGLOBIN A1c 6.9 %
[2021-05-20 13:31] LABS: ALBUMIN 3.5 GM/DL (3.2-5.2); ALT/SGPT 24 U/L (12-78); BILIRUBIN,TOTAL 0.4 MG/DL (0.2-1.0); BLOOD UREA NITROGEN 16 MG/DL (7-18); CALCIUM LEVEL 9.8 MG/DL (8.5-10.1); CARBON DIOXIDE LEVEL 26 MEQ/L (21-32); CHLORIDE LEVEL 103 MEQ/L (98-107); CHOLESTEROL LEVEL 198 MG/DL (<200); CHOLESTEROL RISK RATIO 4.829 (<5); CREATININE FOR GFR 0.81 MG/DL (0.55-1.30); FREE T4 1.21 NG/DL (0.76-1.46); GLOMERULAR FILTRATION RATE > 60.0 (>51); GLUCOSE, FASTING 194 MG/DL (70-100); HDL CHOLESTEROL 41 MG/DL (>40); NON-HDL-C 157 MG/DL; POTASSIUM SERUM 4.4 MEQ/L (3.5-5.1); SODIUM LEVEL 135 MEQ/L (136-145); TOTAL PROTEIN 7.4 GM/DL (6.4-8.2); TRIGLYCERIDES LEVEL 451 MG/DL (<150)
[2021-05-20 13:37] LABS: CREATININE, URINE 67.7 MG/DL; MALB URINE SIEMENS < 5.0 MG/L; MAU/CREAT RATIO 7.3 MCG/MG (0.0-30.0)
[2021-05-21 18:07] LABS: ANTI DOUBLE STRAND-DNA AB 2 IU/mL (0-9); ANTINUCLEAR ANTIBODIES DIRECT Positive (Negative); RNP ANTIBODIES 1.4 AI (0.0-0.9); SJOGREN'S ANTI SS-A <0.2 AI (0.0-0.9); SJOGREN'S ANTI SS-B <0.2 AI (0.0-0.9); SMITH ANTIBODIES <0.2 AI (0.0-0.9)
== END ==
LOC: M PLALAB 11:56
PROVIDERS: ATTEND Nurse Practitioner Family
DX: E11.9 Type 2 diabetes mellitus without complications (principal); E78.5 Hyperlipidemia, unspecified

== ENCOUNTER → 2021-07-04 | Outpatient (CLI) | payer OTHER, MEDICAID ==
--- NOTE | 2021-07-04 08:33 | REP ---
INDICATION: UNSP INJURY OF RIGHT WRIST, HAND AND FINGER(S), INIT ENCNTR. COMPARISON: None. TECHNIQUE: Four views FINDINGS: There is soft tissue swelling over the dorsal aspect of the hand and wrist. Distal radius and ulna show no displaced fracture. There is a tiny ossific density adjacent to the distal tip of the radial styloid with smooth margins suggesting that this is old. Likewise there is a small os ossific density adjacent to the distal ulnar margin of the radius with smooth margins. I suspect this may also be old. Carpal bones show no displaced fracture or focal lesion. There is some minor degenerative changes at the 1st MCP joint. CMC and IP joints show minimal degenerative change. Metacarpals and phalanges without displaced fracture or focal lesion. IMPRESSION: 1. Two tiny avulsions off the distal radius that appear most likely old. Please correlate clinically. No visible displaced fracture, subluxation or other acute bony finding. Fractures of the metacarpals or phalanges identified. <Electronically signed by Bulmaro Danielle > 07/04/21 [id number]
== END ==
LOC: M PLAIMG 07:36
PROVIDERS: ATTEND Physician Assistant
DX: S69.91XA Unspecified injury of right wrist, hand and finger(s), initial encounter (principal); X58.XXXA Exposure to other specified factors, initial encounter; Y92.9 Unspecified place or not applicable; Y93.9 Activity, unspecified; Y99.9 Unspecified external cause status; M79.89 Other specified soft tissue disorders; M19.041 Primary osteoarthritis, right hand

== ENCOUNTER → 2021-08-16 | Outpatient (REF) | payer OTHER, MEDICAID ==
[2021-08-16 17:17] LABS: APPEARANCE, URINE CLEAR (CLEAR); BACTERIA, URINE AUTO NEGATIVE (NEGATIVE); BILIRUBIN, URINE AUTO NEGATIVE (NEGATIVE); BLOOD, URINE BLOOD NEGATIVE (NEGATIVE); COLOR, URINE YELLOW (YELLOW); GLUCOSE, URINE (UA) AUTO 3+ mg/dL (NEGATIVE); KETONE, URINE AUTO NEGATIVE (NEGATIVE); LEUKOCYTE ESTERASE, URINE AUTO NEGATIVE (NEGATIVE); NITRITE, URINE AUTO NEGATIVE (NEGATIVE); PROTEIN, URINE AUTO NEGATIVE (NEGATIVE); RBC, URINE AUTO 0 /HPF (0-3); SPECIFIC GRAVITY URINE AUTO 1.027 (1.002-1.035); SQUAMOUS EPITHELIAL CELL UR AU 3 /HPF (0-6); UROBILINOGEN, URINE AUTO 0.2 mg/dL (0.0-2.0); WBC, URINE AUTO 2 /HPF (0-3)
[2021-08-16 17:24] LABS: C REACTIVE PROTEIN QUANTITATIV 1.7 MG/DL (0.00-0.30); CREATININE,RANDOM URINE 58.7 MG/DL; TOTAL PROTEIN,RANDOM URINE 7.6 MG/DL (0.0-12.0)
== END ==
LOC: M SFHCRHEU 11:10
PROVIDERS: ATTEND Internal Medicine
DX: R76.8 Other specified abnormal immunological findings in serum (principal)

== ENCOUNTER → 2021-08-25 | Outpatient (CLI) | payer OTHER | LOC: M PLALAB 13:39 | PROVIDERS: ATTEND Internal Medicine | DX: M25.40 Effusion, unspecified joint (principal); M70.60 Trochanteric bursitis, unspecified hip; M25.741 Osteophyte, right hand; M25.742 Osteophyte, left hand ==